=== PATIENT | female | born 1960 | race Caucasian/White ===

== ENCOUNTER 2018-05-31 14:07 | Emergency (ER) | payer OTHER, SELFPAY ==
[2018-05-31 14:14] VITALS: BP 125/91; PULSE 95; RESP 16; TEMP 37.5; O2SAT 96
--- NOTE | 2018-05-31 14:55 | DI.RAD_ITS ---
SYMPTOM/DIAGNOSIS: BLUNT TRAUMA RIGHT FOOT: 05/31 Three views were obtained. No fracture is seen.
--- NOTE | 2018-05-31 15:49 | DI.VRAD_ITS ---
EXAM: XR Right Foot Complete, 3 or more Views EXAM DATE/TIME: 05/31/2018 2:56 PM CLINICAL HISTORY: 58 years old, female; Injury or trauma; Injury history: Per PT: Dropped piece of plywood on foot, from about 3'; Initial encounter; Blunt trauma; Right; Patient HX: Blunt trauma to r foot, dropped plywood on foot TECHNIQUE: XR Right foot 3 or more views. COMPARISON: No relevant prior studies available. FINDINGS: Bones/joints: Normal. Soft tissues: Normal. IMPRESSION: No acute findings. Dictated and Authenticated by: Deangelo Carnes MD. Ordering:ASIA DINH MD
--- NOTE | 2018-05-31 16:11 | ED.GENADUL_ITS ---
Discharge Plan Disposition Patient Disposition: HOME Condition: Good Discharge Details Chief Complaint: Orthopedic Clinical Impression: Traumatic hematoma of right foot Primary Care Provider: Brigida Roque ED Provider: Darvin Johnson Home Meds and New Rx's Prescriptions: No Action hydrocortisone 30 GM cream with perineal applicator 30 gm RC PRN RF: 0 multivitamin 1 EACH capsule 1 ea PO PRN PRNRF: 0 Discharge Instructions Instructions: Foot Contusion (ED) Additional Instructions: Feel free to return the emergency department for any new or worsening symptoms otherwise follow-up with your primary care provider as needed for reassessment if not improving. Continue to use ice for 20 minutes at a time for the next 48 hours and take [id number] pain medication as needed for discomfort. You may use the hard sole shoe as needed for discomfort or walking as well. Referrals: Brigida Roque [Primary Care Provider] - (as needed for reassessment) Discharge Data Discharge Date/Time-TO BE ENTERED AT DEPARTURE: 05/31/18 16:24 Medical Decision Making Patient presenting to the emergency department for complaint of right foot pain after dropping a board on her foot. Patient does have ecchymosis swelling and tenderness to the dorsal aspect of her foot so radiological imaging was ordered. After review of radiological imaging and radiologist interpretation that shows no acute findings I feel the patient is able to be safely discharged. Patient was ordered a postop shoe for discomfort and encouraged to use ice and iguu-[id number] pain medication as needed. Patient to follow-up with primary care if not improving over the next couple weeks. After discussion of diagnosis and plan of care patient is no further needs, questions , or concerns and states clear understanding to return to the emergency department for any worsening symptoms. HPI General Mode of arrival: ambulatory . Date/Time Provider Initiated Documentation: 05/31/18 14:09 . Limitations to Documentation: no limitations . Information obtained by: patient . History of Present Illness described as moderate, with intensity rated at 6. Quality is described as aching, and is localized to the right and lower extremity. and it has been constant. No relieving factors improve symptom(s), No exacerbating factors reported . Patient did receive the following treatments prior to arrival, none Related Data Home Medications Medication Instructions Recorded Confirmed hydrocortisone 30 gm RC PRN script NS 08/13/17 05/31/18 multivitamin 1 ea PO PRN PRN NS 08/13/17 05/31/18 Allergies Allergy/AdvReac Type Severity Reaction Status Date / Time No Known Allergies Allergy Unverified 05/31/18 14:16 General Stated Complaint: Orthopedic LAINE: 4 Review of Systems Cardiovascular Denies syncope Musculoskeletal Reports as per HPI Neurologic Denies syncope and Denies sensory deficit PFSH Family History Mother OA (osteoarthritis) CVA (cerebral vascular accident) Father Diabetes CAD (coronary artery disease) Social History Smoking/Tobacco Use Status: Never Surgical History Colonoscopy - MAC (10/04/17) Exam Const General: not in acute distress and not diaphoretic Orientation: alert, awake and oriented x3 Resp Effort & Inspection: normal respiratory effort and able to speak in complete sentences Cardio Rate: regular rate Rhythm: regular rhythm Extrem Right lower extremity: lower leg Details: normal to inspection, ankle Details: normal to inspection and foot Details: normal capillary refill, tenderness Location: of the dorsal foot, toes with normal ROM, edema Location: of the dorsal foot and ecchymosis (dorsal foot); no puncture wound Course Vital Signs Temperature 37.5 C 05/31/18 14:14 Pulse 95 H 05/31/18 14:14 Respiratory Rate 16 05/31/18 14:14 Blood Pressure 125/91 H 05/31/18 14:14 Pulse Oximetry 96 05/31/18 14:14 Temperature 37.5 C 05/31/18 14:14 Temperature Source Temporal Artery Scan 05/31/18 14:14 Pulse 95 H 05/31/18 14:14 Respiratory Rate 16 05/31/18 14:14 Blood Pressure 125/91 H 05/31/18 14:14 Pulse Oximetry 96 05/31/18 14:14 Pain Level 2 05/31/18 14:14
[2018-05-31 16:24] VITALS: BP 125/91; PULSE 95; RESP 16; TEMP 37.5; O2SAT 96
== END 2018-05-31 16:24 | disposition home or self-care (01) ==
PROVIDERS: Emergency Provider Nurse Practitioner Family; PCP Family Medicine
DX: S90.31XA Contusion of right foot, initial encounter (principal); W20.8XXA Other cause of strike by thrown, projected or falling object, initial encounter
CPT/HCPCS: 29515; 99284; 73630; 99282

== ENCOUNTER 2021-12-11 18:27 | Outpatient (REF) | payer BC, SELFPAY ==
--- NOTE | 2021-12-11 16:40 | PAPFT_PTH ---
PATIENT: Lourdes Scherer LOC: NCN #:[id number] AGE/SX: 61/F ROOM: RE12/11/[address]: Brigida Roque : 1960 BED: DIS: 12/11/2021 SPEC #: [id number] RECD: 12/12/21 12:59 STATUS: JHONY REGera #: [id number] DAYO: 12/11/21 16:[address]: Brigida Roque DEPT: [facility] Cytology RECD BY: Any Valles Tissues: 1 - CX/ENDOCX FOR PAP SMEARS Procedures: PAP THIN PREP/UVM Screening HPV DNA PROBE Comments: [id number]
== END 2021-12-11 18:28 | disposition home or self-care (01) ==
LOC: NCHCN 18:27
PROVIDERS: PCP Family Medicine; Visit Provider Family Medicine
DX: Z12.4 Encounter for screening for malignant neoplasm of cervix (principal); Z11.51 Encounter for screening for human papillomavirus (HPV); Z00.00 Encounter for general adult medical examination without abnormal findings; Z01.419 Encounter for gynecological examination (general) (routine) without abnormal findings
CPT/HCPCS: 88142; 87624

== ENCOUNTER → 2022-01-31 03:25 | Outpatient (CLI) | payer BC, SELFPAY ==
--- NOTE | 2022-01-31 09:20 | DI.MAMMO_ITS ---
Exam(s) MAMMO SCREENING EXAM: MAMMO SCREENING CLINICAL HISTORY: SCREENING, Z12.31 TECHNIQUE: Mammograms were interpreted according to the usual protocol including computer analysis w [employer] CAD system, tomosynthesis and C-view imaging. COMPARISON: FINDINGS: The breasts are of moderate density with fairly symmetrical distribution of fibroglandular tissue. N o dominant mass or clumped microcalcification is identified in either breast. The current examinatio n is compared with previous examinations including July 2017 and there has been no gross interval change in appearance in comparison with the prior studies. IMPRESSION: No specific evidence of malignancy at this time. Routine screening examinations are suggested at yea rly intervals in this age group according to the ACS ACR guidelines. BI-RADS Category 1 - Negative Breast Density - Category B - Scattered areas of fibroglandular density
== END ==
PROVIDERS: PCP Family Medicine; Visit Provider Family Medicine
DX: Z12.31 Encounter for screening mammogram for malignant neoplasm of breast (principal)
CPT/HCPCS: 77063; 77067

== ENCOUNTER 2022-04-25 07:38 | Observation (INO) | payer BC, SELFPAY ==
[2022-04-25 07:45] VITALS: BP 143/79; PULSE 62; RESP 18; TEMP 36.7; O2SAT 100
--- NOTE | 2022-04-25 08:00 | DI.CT_ITS ---
Exam(s) CT RENAL COLIC WO EXAM: CT RENAL COLIC WO CLINICAL HISTORY: rt flank pain. TECHNIQUE: Imaging Protocol: Axial computed tomography images with coronal and sagittal reformatted images were created and reviewed CONTRAST MATERIAL: Intravenous: none Oral: None COMPARISON: CT RENAL COLIC WO CONTRAST from 03/06/2010 FINDINGS: VISUALIZED LUNG BASES: No nodules nor pleural effusions evident. ABDOMEN: There is no ascites. LIVER: There are no obvious focal hepatic lesions evident of this noninfused study. GALLBLADDER/BILIARY: Large intraluminal gallstones are again noted, these ranging up to 2 cm size. N o gallbladder wall edema nor pericholecystic fluid. CBD is not dilated. PANCREAS: No evidence of pancreatic mass nor dilatation of the pancreatic duct. SPLEEN: Spleen is not enlarged. No obvious intrasplenic lesions. ADRENALS: There are no significant adrenal masses. KIDNEYS:Left kidney is unremarkable. There is hydronephrosis and hydroureter on the right side. Cul prit calculus is in the lower right ureter a few cm above the ureterovesical junction. This calculus measures 6 x 3 millimeters. No other calculi seen in the ureter nor in the urinary bladder.. ABDOMINAL AORTA: Abdominal aorta is not enlarged. LYMPH NODES: There is no retroperitoneal nor paraaortic adenopathy. ABDOMINAL WALL: There is a fat only containing anterior abdominal wall midline umbilical hernia. GI: There is no evidence of bowel obstruction, free air, nor abscess. PELVIS: LYMPH NODES: There is no intrapelvic nor inguinal adenopathy. GI: Small appendicular lith noted in the appendix but no evidence of acute appendicitis at this time. No evidence of sigmoid diverticulitis. URINARY BLADDER: No calculi nor obvious masses evident REPRODUCTIVE: Uterus and adnexal regions appear age-appropriate. No free fluid OSSEOUS: No significant osseous lesions. Advanced disc space narrowing at L2-3 level. Moderate disc space narrowing L5-S1. IMPRESSION: 1. Main finding here is a 6 x 3 millimeter calculus in the lower right ureter above the ureterovesica l junction. This is causing unilateral right-sided hydronephrosis and hydroureter. Also perinephric streaking. The opposite-left kidney appears unremarkable. 2. Cholelithiasis again noted. There are 3 large calculi in the gallbladder lumen. No evidence of a cute cholecystitis. 3. Small appendicolith noted in the appendix but no evidence of acute appendicitis. Report called by myself to the ER provider. RADIATION DOSE DELIVERED: 836.55mGy.cm Total DLP DATA REPOSITORY: All CT scans at this facility are submitted to the National Radiology Data Registry (NRDR) Dose Index Registry (DIR) with the [employer] (ACR). RADIATION OPTIMIZATION: All CT scans at this facility use at least one of these dose optimization te chniques: automated exposure control; mA and/or kV adjustment per patient size (includes targeted exa ms where dose is matched to clinical indication); or iterative reconstruction.
--- NOTE | 2022-04-25 08:07 | W.ED.GENAD ---
Discharge Plan Disposition Patient Disposition: [facility] INPATIENT Condition: Stable Discharge Details Chief Complaint: FlankPain Clinical Impression: Right kidney stone Admit Date/Time: 04/25/22 11:52 Admit Provider: Annamaria Resendez Attending Provider: Annamaria Resendez Primary Care Provider: Brigida Roque ED Provider: Apollo Roberson Discharge Instructions Activity:: Activity as Tolerated Equipment/Supplies:: No Equipment Needed Diet:: As Tolerated Discharge Orders Discharge Orders: Discharge Order (Routine); Ordered 04/27/22 Ordered By: Luis Manuel Vargas Discharge Data Discharge Date/Time-TO BE ENTERED AT DEPARTURE: 04/25/22 12:39 Medical Decision Making 832??62-year-old female with history of kidney stones in the remote past, here with right flank pain. Concern for obstructed renal calculi versus less likely pyelonephritis. Patient does have associated nausea and vomiting and currently is experiencing severe pain. Urinalysis reviewed and patient has microscopic hematuria, consistent with renal stone. Zofran IV and IVF for nausea. Toradol IV and Dilaudid IV for analgesia. Plan to obtain CT of the abdomen pelvis to assess for acute surgical pathology including obstructing ureteral lithiasis. --CT was reviewed and interpreted by radiology:IMPRESSION: 1. Main finding here is a 6 x 3 millimeter calculus in the lower right ureter above the ureterovesical junction.? This is causing unilateral right-sided hydronephrosis and hydroureter.? Also perinephric streaking.? The opposite-left kidney appears unremarkable. 2. Cholelithiasis again noted.? There are 3 large calculi in the gallbladder lumen.? No evidence of acute cholecystitis. 3. Small appendicolith noted in the appendix but no evidence of acute appendicitis. 1030 --patient had some improvement in nausea and pain but then recurred. She was given additional Dilaudid IV and also Reglan IV. 1100 --patient was seen by urology, plan for stone extraction versus stent placement tomorrow. 1145 --patient reassessed and continues to have severe nausea. Plan to admit for IV fluid and continued analgesic and antiemetic treatment until procedure. Lab Data Lab results reviewed: Yes I reviewed the patient's lab results. Labs: Laboratory Tests Range/Units 04/25/22 04/25/22 04/25/22 07:48 07:58 08:06 WBC (4.4-10.8) 10^3/uL 7.16 RBC (3.93-5.22) 10^6/uL 4.13 Hgb (11.2-15.7) g/dL 12.8 Hct (36.0-46.0) % 38.7 MCV (80-95) fL 94 MCH (27.0-33.0) pg 31.0 MCHC (32.0-36.0) % 33.1 RDW (11.7-14.6) % 11.6 L Plt Count (130-400) 10^3/uL 384 MPV (8.0-11.0) fL 10.2 Immature Gran % 0.3 Neutrophils % 78.3 Lymphocytes % 13.5 Monocytes % 5.2 Eosinophils % 2.1 Basophils % 0.6 Nucleated RBC % (0.0-0.3) % 0.0 Absolute Neutrophils (1.2-6.7) 10^3/uL 5.61 Absolute Lymphocytes (1.2-3.4) 10^3/uL 0.97 L Absolute Monocytes (0.1-0.8) 10^3/uL 0.37 Absolute Eosinophils (0.0-0.7) 10^3/uL 0.15 Absolute Basophils (0.0-0.2) 10^3/uL 0.04 Sodium (136-145) mmol/L 142 Potassium (3.5-5.1) mmol/L 3.8 Chloride (98-107) mmol/L 105 Carbon Dioxide (21.0-32.0) mmol/L 30.2 Anion Gap (3-11) mmol/L 6.8 BUN (7-18) mg/dL 12 Creatinine (0.55-1.02) mg/dL 0.8 Estimated GFR/1.73 m2 (mL/min/1.73m2) >= 60.00 Glucose (74-106) mg/dL 126 H Calcium (8.5-10.1) mg/dL 8.7 Total Bilirubin (0.2-1.0) mg/dL 0.5 AST (15-37) U/L 23 ALT (14-59) U/L 46 Alkaline Phosphatase (46-116) U/L 87 Total Protein (6.4-8.2) g/dL 7.5 Albumin (3.4-5.0) g/dL 3.8 Lipase (73-393) U/L 128 Urine Color (Yellow) Yellow Urine Clarity (Clear) Sl Cloudy Urine pH (5-8) 7.0 Ur Specific [place] (1.005-1.025) 1.025 Urine Protein (Negative) mg/dL Trace H Urine Ketones (Negative) mg/dL Negative Urine Blood (Negative) Moderate H Urine Nitrite (Negative) Negative Urine Bilirubin (Negative) Negative Urine Urobilinogen (Up TO 0.2) EU/dL 0.2 Ur Leukocyte Esterase (Negative) Negative Urine RBC (0-2) HPF >50 H Urine WBC (0-5) HPF 0-2 Ur Epithelial Cells (Negative) HPF Few Urine Crystals (Negative) HPF Negative Urine Bacteria (Negative) HPF Few Urine Casts (Negative) LPF Negative Urine Mucus (Negative) Negative Urine Other (Negative) Negative Ur Culture Indicated? No Urine Glucose (Negative) mg/dL Negative COVID-19 Source Range/Units 04/25/22 10:55 WBC (4.4-10.8) 10^3/uL RBC (3.93-5.22) 10^6/uL Hgb (11.2-15.7) g/dL Hct (36.0-46.0) % MCV (80-95) fL MCH (27.0-33.0) pg MCHC (32.0-36.0) % RDW (11.7-14.6) % Plt Count (130-400) 10^3/uL MPV (8.0-11.0) fL Immature Gran % Neutrophils % Lymphocytes % Monocytes % Eosinophils % Basophils % Nucleated RBC % (0.0-0.3) % Absolute Neutrophils (1.2-6.7) 10^3/uL Absolute Lymphocytes (1.2-3.4) 10^3/uL Absolute Monocytes (0.1-0.8) 10^3/uL Absolute Eosinophils (0.0-0.7) 10^3/uL Absolute Basophils (0.0-0.2) 10^3/uL Sodium (136-145) mmol/L Potassium (3.5-5.1) mmol/L Chloride (98-107) mmol/L Carbon Dioxide (21.0-32.0) mmol/L Anion Gap (3-11) mmol/L BUN (7-18) mg/dL Creatinine (0.55-1.02) mg/dL Estimated GFR/1.73 m2 (mL/min/1.73m2) Glucose (74-106) mg/dL Calcium (8.5-10.1) mg/dL Total Bilirubin (0.2-1.0) mg/dL AST (15-37) U/L ALT (14-59) U/L Alkaline Phosphatase (46-116) U/L Total Protein (6.4-8.2) g/dL Albumin (3.4-5.0) g/dL Lipase (73-393) U/L Urine Color (Yellow) Urine Clarity (Clear) Urine pH (5-8) Ur Specific [place] (1.005-1.025) Urine Protein (Negative) mg/dL Urine Ketones (Negative) mg/dL Urine Blood (Negative) Urine Nitrite (Negative) Urine Bilirubin (Negative) Urine Urobilinogen (Up TO 0.2) EU/dL Ur Leukocyte Esterase (Negative) Urine RBC (0-2) HPF Urine WBC (0-5) HPF Ur Epithelial Cells (Negative) HPF Urine Crystals (Negative) HPF Urine Bacteria (Negative) HPF Urine Casts (Negative) LPF Urine Mucus (Negative) Urine Other (Negative) Ur Culture Indicated? Urine Glucose (Negative) mg/dL COVID-19 Source Nasal/Nares HPI General Mode of arrival: ambulatory. Date/Time Provider Initiated Documentation: 04/25/22 07:57. Limitations to Documentation: no limitations. Information obtained by: patient. HPI Narrative: 52-year-old female presents with chief complaint of flank pain. Patient notes right flank pain that started yesterday and has progressed. Pain is constant. Pain is currently severe rated 9/10. Pain localized to right flank and radiating into right mid abdomen. Pain feels similar to when she had kidney stones in the remote past. She has no associated hematuria or dysuria. She does have associated nausea and vomiting. Related Data Home Medications Medication Instructions Recorded Confirmed ibuprofen 400 mg tablet 400 mg PO Q6H 04/25/22 04/25/22 tramadol 50 mg tablet 50 mg PO Q6H PRN #10 tabs 04/27/22 Previous Rx's Medication Instructions Recorded tramadol 50 mg tablet 50 mg PO Q6H PRN #10 tabs 04/27/22 Allergies Allergy/AdvReac Type Severity Reaction Status Date / Time No Known Allergies Allergy Unverified 04/25/22 07:50 General Stated Complaint: FlankPain LAINE: 3 Review of Systems All systems reviewed & are unremarkable except as noted in HPI and below Constitutional Constitutional: Denies fever(s) Gastrointestinal Gastrointestinal: Reports as per HPI [facility] Medical History (Updated 04/28/22 @ 00:01 by LEYLA TO) COVID-19 Impacted cerumen (08/10/13) Right distal ureteral calculus Right kidney stone Sensorineural hearing loss, unilateral (08/10/13) Surgical History Colonoscopy - MAC (10/04/17) Family History Mother OA (osteoarthritis) Stroke Father Diabetes CAD (coronary artery disease) Social History Smoking/Tobacco Use Status: Never Smoking risk assessment performed?: Yes Alcohol Intake: current Alcohol Intake frequency: holidays/special occasions only Drug use: Never Substance use type: does not use Do you feel safe at home: Yes Do you feel safe in your relationship?: Yes Exam Const General: cooperative and no acute distress HENMT Mouth: moist mucous membranes Resp Auscultation: clear to auscultation bilaterally, no rales, no rhonchi and no wheezes Cardio Rate: regular rate and not tachycardic Rhythm: regular rhythm GI Palpation: soft, not firm, no guarding, no masses, not rigid and nontender General: CVA tenderness on the right Skin General skin exam: no rashes or lesions noted Neuro General: patient alert, patient awake and tone normal Course Vital Signs Vital signs: Vital Signs Temperature 36.7 C 04/25/22 07:45 Pulse 62 04/25/22 07:45 Respiratory Rate 18 04/25/22 07:45 Blood Pressure 143/79 H 04/25/22 07:45 Pulse Oximetry 100 04/25/22 07:45 Temperature 36.7 C 04/25/22 07:45 Temperature Source Temporal Artery Scan 04/25/22 07:45 Pulse 62 04/25/22 07:45 Respiratory Rate 18 04/25/22 07:45 Respiratory Effort Non-Labored 04/25/22 08:05 Blood Pressure 143/79 H 04/25/22 07:45 Blood Pressure Position Sitting 04/25/22 07:45 Pulse Oximetry 100 04/25/22 07:45 Oxygen Delivery Method Room Air 04/25/22 07:45 Oxygen Flow Rate 0 04/25/22 07:45 Pain Level 8 04/25/22 08:04
[2022-04-25 08:10] LABS: Bilirubin Negative (Negative); Blood Moderate (Negative); Clarity Sl Cloudy (Clear); Glucose Negative (Negative); Ketones Negative (Negative); Leukocyte Esterase Negative (Negative); Nitrite Negative (Negative); Specific Gravity 1.025 (1.005-1.025); Urobilinogen 0.2 EU/dL (Up TO 0.2)
[2022-04-25 08:16] LABS: Bacteria Few HPF (Negative); C & S Indicated? No; Casts Negative LPF (Negative); Crystals Negative HPF (Negative); Epithelial Cells Few HPF (Negative); Mucus Negative (Negative); Other Cells Negative (Negative); RBC >50 HPF (0-2); WBC 0-2 HPF (0-5)
[2022-04-25] MEDS: Ketorolac 15 MG/ML VIAL IVP ×2 (08:22→23:00)
[2022-04-25] MEDS: Ondansetron 4 MG/2 ML VIAL IVP (08:22)
[2022-04-25] MEDS: Normal Saline Flush 10 ML SYR IVP ×2 (08:22→13:21)
[2022-04-25] MEDS: Lactated Ringers 500 ML IV (08:23)
[2022-04-25] MEDS: HYDROmorphone 2 MG/ML SYR 0.5 MG IVP (08:23)
[2022-04-25 08:32] LABS: Abs Immature Grans 0.02 10^3/uL (0.0-0.06); Absolute Basophil Count 0.04 10^3/uL (0.0-0.2); Absolute Eosinophil Count 0.15 10^3/uL (0.0-0.7); Absolute Lymphocyte Count 0.97 10^3/uL (1.2-3.4); Absolute Monocyte Count 0.37 10^3/uL (0.1-0.8); Absolute Neutrophil Count 5.61 10^3/uL (1.2-6.7); Basophils % 0.6; Eosinophils % 2.1; HCT 38.7 % (36.0-46.0); HGB 12.8 g/dL (11.2-15.7); Immature Grans % 0.3; Lymphocytes % 13.5; MCHC 33.1 % (32.0-36.0); MCV 94 fL (80-95); MPV 10.2 fL (8.0-11.0); Monocytes % 5.2; Neutrophils % 78.3; Platelet Count 384 10^3/uL (130-400); RBC 4.13 10^6/uL (3.93-5.22); RDW 11.6 % (11.7-14.6); RDW-SD 39.5 fL; WBC 7.16 10^3/uL (4.4-10.8)
[2022-04-25 08:47] LABS: ALT 46 U/L (14-59); AST 23 U/L (15-37); Albumin 3.8 g/dL (3.4-5.0); Alkaline Phosphatase 87 U/L (46-116); Anion Gap 6.8 mmol/L (3-11); BUN 12 mg/dL (7-18); Bilirubin, Total 0.5 mg/dL (0.2-1.0); CO2 30.2 mmol/L (21.0-32.0); CREATININE 0.8 mg/dL (0.55-1.02); Calcium 8.7 mg/dL (8.5-10.1); Chloride 105 mmol/L (98-107); Glucose 126 mg/dL (74-106); Lipase 128 U/L (73-393); Potassium 3.8 mmol/L (3.5-5.1); Sodium 142 mmol/L (136-145); Total Protein 7.5 g/dL (6.4-8.2)
[2022-04-25] MEDS: HYDROmorphone 2 MG/ML SYR (09:26)
[2022-04-25] MEDS: Tamsulosin 0.4 MG CAPCR PO (09:50)
[2022-04-25 09:56] VITALS: BP 126/74; PULSE 62; TEMP 36.2; O2SAT 95
[2022-04-25] MEDS: Metoclopramide 10 MG/2 ML VIAL IVP (10:51)
[2022-04-25 10:58] LABS: Source Nasal/Nares
--- NOTE | 2022-04-25 12:01 | PDOC.ANES ---
Date of service: 04/25/22 Time of Service: 11:25 Anesthesia Note Report Anesthesia Note: Spoke with patient at length about previous associated complication with anesthesia dating back to the 1960s. Patient was previously a patient of mine in 2018 for a colonoscopy and proceeded without incident. In 2018, extensive chart review was completed and it was noted that patient had received GETA without paralytic, easy intubation, and had no documented note of masseter spasm. Of note, patient was COVID positive in early April and reports she was symptomatic with a fever for 12 days and still feels run down and fatigued. If surgery is indicated, discussed possibility of SAB vs GETA vs MAC. Will discuss case furthery with Urology and formulate a plan.
[2022-04-25 12:12] VITALS: BP 129/72; PULSE 70; RESP 18; TEMP 36.5; O2SAT 97
--- NOTE | 2022-04-25 12:51 | W.PM.HP.N ---
Date of service: 04/25/22 Time of Service: 12:52 Assessment and Plan Assessment and plan (1) Right kidney stone: Status: Acute Assessment and plan: referred to observation for intractable nausea/vomiting and pain received flomax in ED continue pain management and antiemetics urology consulted and planned OR procedure tomorrow. NPO after midnight strain urine, continue flomax (2) COVID-19: Status: Acute Assessment and plan: Had symptomatic covid in early April and now with no respiratory symptoms, likely residual positive PCR. She remains fatigued since. No covid treatment recommended at this time. high cycling time (> 34), no covid precaution, standard precautions only. (3) Discharge planning issues: Status: Acute Assessment and plan: anticipate discharge to home with no services after procedure tomorrow if stable discussed with DR Resendez History of Present Illness History of Present Illness Chief Complaint: right flank pain Narrative: 62 year old female with history of kidney stone who presents with similar pain. work up in the ED shows a right urethral stone with hydro, no kidney injury. she received IV pain medication and antiemetics with ongoing symptoms that are not managed. Her case was discussed with urology who will take her to the OR tomorrow for surgical procedure. she is unable to be discharged to home d/t unable to take PO and will stay here under observation until her procedure under hospitalist services. Review of Systems All systems reviewed & are unremarkable except as noted in HPI and below Constitutional Constitutional: Denies fever(s) ENT Ears, Nose, Mouth, and Throat: Denies dizziness Cardiovascular Cardiovascular: Denies chest pain and Denies dyspnea Respiratory Respiratory: Denies dyspnea Gastrointestinal Gastrointestinal: Denies abdominal pain, Denies constipation, Denies diarrhea, Reports nausea and Reports vomiting Genitourinary Genitourinary: Denies hematuria and Denies difficulty voiding Musculoskeletal Musculoskeletal: Reports back pain (right flank) Integumentary/Breasts Skin/Breast: Denies new lesions and Denies rash Neurologic Neurologic: Denies dizziness PFSH All Active Problems (Updated 04/25/22 @ 18:23 by Winsome Villar NP) Discharge planning issues (Acute) COVID-19 (Acute) Right kidney stone (Acute) Surgical History Colonoscopy - MAC (10/04/17) Family History Mother OA (osteoarthritis) Stroke Father Diabetes CAD (coronary artery disease) Social History Smoking/Tobacco Use Status: Never Smoking risk assessment performed?: Yes Alcohol Intake: current Alcohol Intake frequency: holidays/special occasions only Drug use: Never Substance use type: does not use Do you feel safe at home: Yes Do you feel safe in your relationship?: Yes Meds Allergies and Home Medications Allergies Allergy/AdvReac Type Severity Reaction Status Date / Time No Known Allergies Allergy Unverified 04/25/22 07:50 Home Medications Medication Instructions Recorded Confirmed Type ibuprofen 400 mg tablet 400 mg PO Q6H 04/25/22 04/25/22 History Exam Const General: cooperative and no acute distress Nutritional Appearance: average body habitus Orientation: alert, awake and oriented x3 HENMT Head: normal to inspection, normocephalic and atraumatic Mouth: oral mucosae normal Cardio Rate: regular rate Rhythm: regular rhythm GI Inspection: normal to inspection Palpation: soft and nontender Back/Spine/Pelvis Back: CVA tenderness (right) Skin General skin exam: no rashes or lesions noted Neuro General: patient alert, patient awake, patient oriented x3 and no focal motor deficits Extrem General: normal to inspection and no pedal edema Psych Appearance: grossly normal Mental Status: mental status grossly normal Speech and Movement: speech and movement normal Mood: congruent mood Results Labs Result diagrams: 04/25/22 08:06 04/25/22 07:58 Labs: Laboratory Results - last 24 hr 04/25/22 04/25/22 04/25/22 07:48 07:58 08:06 WBC 7.16 RBC 4.13 Hgb 12.8 Hct 38.7 MCV 94 MCH 31.0 MCHC 33.1 RDW 11.6 L Plt Count 384 MPV 10.2 Immature Gran % 0.3 Neutrophils % 78.3 Lymphocytes % 13.5 Monocytes % 5.2 Eosinophils % 2.1 Basophils % 0.6 Nucleated RBC % 0.0 Absolute Neutrophils 5.61 Absolute Lymphocytes 0.97 L Absolute Monocytes 0.37 Absolute Eosinophils 0.15 Absolute Basophils 0.04 Sodium 142 Potassium 3.8 Chloride 105 Carbon Dioxide 30.2 Anion Gap 6.8 BUN 12 Creatinine 0.8 Estimated GFR/1.73 m2 >= 60.00 Glucose 126 H Calcium 8.7 Total Bilirubin 0.5 AST 23 ALT 46 Alkaline Phosphatase 87 Total Protein 7.5 Albumin 3.8 Lipase 128 Urine Color Yellow Urine Clarity Sl Cloudy Urine pH 7.0 Ur Specific [place] 1.025 Urine Protein Trace H Urine Ketones Negative Urine Blood Moderate H Urine Nitrite Negative Urine Bilirubin Negative Urine Urobilinogen 0.2 Ur Leukocyte Esterase Negative Urine RBC >50 H Urine WBC 0-2 Ur Epithelial Cells Few Urine Crystals Negative Urine Bacteria Few Urine Casts Negative Urine Mucus Negative Urine Other Negative Ur Culture Indicated? No Urine Glucose Negative COVID-19 Source 04/25/22 10:55 WBC RBC Hgb Hct MCV MCH MCHC RDW Plt Count MPV Immature Gran % Neutrophils % Lymphocytes % Monocytes % Eosinophils % Basophils % Nucleated RBC % Absolute Neutrophils Absolute Lymphocytes Absolute Monocytes Absolute Eosinophils Absolute Basophils Sodium Potassium Chloride Carbon Dioxide Anion Gap BUN Creatinine Estimated GFR/1.73 m2 Glucose Calcium Total Bilirubin AST ALT Alkaline Phosphatase Total Protein Albumin Lipase Urine Color Urine Clarity Urine pH Ur Specific [place] Urine Protein Urine Ketones Urine Blood Urine Nitrite Urine Bilirubin Urine Urobilinogen Ur Leukocyte Esterase Urine RBC Urine WBC Ur Epithelial Cells Urine Crystals Urine Bacteria Urine Casts Urine Mucus Urine Other Ur Culture Indicated? Urine Glucose COVID-19 Source Nasal/Nares Last Vital Signs Temp 36.5 C 04/25/22 12:12 Pulse 70 04/25/22 12:12 Resp 18 04/25/22 12:12 BP 129/72 04/25/22 12:12 Pulse Ox 97 04/25/22 12:12
[2022-04-25] MEDS: Normal Saline 500 ML 25 ML IV (13:21)
[2022-04-25 14:00] VITALS: BP 145/77; PULSE 79; RESP 18; TEMP 35.9; O2SAT 98
[2022-04-25 14:14] LABS: COVID-19 PCR Positive (Negative)
--- NOTE | 2022-04-25 16:13 | UCONE_ITS ---
Date of service: 04/25/22 Time of Service: 11:00 Assessment and Plan Assessment and plan (1) Right kidney stone: Status: Acute Assessment and plan: Ms. Scherer is a 62-year-old female with history of renal calculi. We reviewed her current CT that notes a 6 x 3 mm stone in the lower right ureter above the UVJ causing right-sided hydronephrosis and hydroureter. It appears that patient had a similar size and position stone back in 2009. There was no surgical intervention found or noted at that time. Also patient did not feel as if she passed the stone at that time approximately 12 years ago. Question if this is the same stone. In discussion with the patient she feels that her pain and nausea are not necessarily controlled at this time. We will have the emergency room provider work on these matters. If she is able to have her pain and nausea controlled for discharge, we will arrange for her to have surgical intervention tomorrow with ureteroscopy and stone manipulation with possible stenting. We also discussed the possibility of placing a stent only tomorrow. Each of these optio ns and procedures were discussed with her. We noted with patient that if her pain and nausea are not controlled she may need to be admitted here at the facility still with the plan of having surgical intervention as mentioned above. I have asked that the ER provider place a COVID test for this individual so we can move forward with intervention tomorrow. Preop orders were completed and given to nursing for appropriate scheduling with day surgery. Recommend that anesthesia meet with this individual to discuss concerns of patient with prior ill anesthesia experiences. Anesthesia did meet with patient and came to clinic to discuss that patient recently also had COVID. At minimum at this point patient will need stent placement tomorrow and unless stone were to pass overnight. Dr. Vargas was made aware of this matter. Further decision and evaluation pending patient's status. Dictation was done by [employer] voice recognition. Errors may be present within the note. A total of 35 minutes was spent reviewing this patient's EMR, [id number] time, and documenting. History of Present Illness Narrative: Ms. Scherer is a 62-year-old female with right flank pain that started earlier this morning. She notes that she is having nausea with vomiting. She denies dysuria, gross hematuria or change in frequency or urgency. She reports having a history of kidney stones approximately 12 years ago. She notes that she saw urology at that time but no surgical intervention was done. She thinks that her stones at that time was also on her right side. She is unsure if she passed it at that time. She reports no history of gout or parathyroid disease. She does report that in the past she has had trouble with anesthesia related to nonurologic surgeries. Her current medical history is unremarkable. She reports no family history of urologic cancers or concerns. Consults Consult date: 04/25/22 Requesting physician: Apollo Roberson Review of Systems Narrative: See HPI PFSH All Active Problems (Updated 04/25/22 @ 08:34 by Apollo Roberson MD) Right kidney stone (Acute) Surgical History Colonoscopy - MAC (10/04/17) Family History Mother OA (osteoarthritis) Stroke Father Diabetes CAD (coronary artery disease) Social History Smoking/Tobacco Use Status: Never Smoking risk assessment performed?: Yes Alcohol Intake: current Alcohol Intake frequency: holidays/special occasions only Drug use: Never Substance use type: does not use Do you feel safe at home: Yes Do you feel safe in your relationship?: Yes Exam Const General: cooperative Orientation: alert, awake and oriented x3 Resp Effort & Inspection: normal respiratory effort and able to speak in complete sentences GI Inspection: normal to inspection Palpation: soft and tender in the RLQ General: CVA tenderness on the right; not on the left Results Last Vital Signs Temp 96.6 F L 04/25/22 14:00 Pulse 79 04/25/22 14:00 Resp 18 04/25/22 14:00 BP 145/77 H 04/25/22 14:00 Pulse Ox 98 04/25/22 14:00 Labs Result diagrams: 04/25/22 08:06 04/25/22 07:58 Labs: Laboratory Results - last 24 hr 04/25/22 04/25/22 04/25/22 07:48 07:58 08:06 WBC 7.16 RBC 4.13 Hgb 12.8 Hct 38.7 MCV 94 MCH 31.0 MCHC 33.1 RDW 11.6 L Plt Count 384 MPV 10.2 Immature Gran % 0.3 Neutrophils % 78.3 Lymphocytes % 13.5 Monocytes % 5.2 Eosinophils % 2.1 Basophils % 0.6 Nucleated RBC % 0.0 Absolute Neutrophils 5.61 Absolute Lymphocytes 0.97 L Absolute Monocytes 0.37 Absolute Eosinophils 0.15 Absolute Basophils 0.04 Sodium 142 Potassium 3.8 Chloride 105 Carbon Dioxide 30.2 Anion Gap 6.8 BUN 12 Creatinine 0.8 Estimated GFR/1.73 m2 >= 60.00 Glucose 126 H Calcium 8.7 Total Bilirubin 0.5 AST 23 ALT 46 Alkaline Phosphatase 87 Total Protein 7.5 Albumin 3.8 Lipase 128 Urine Color Yellow Urine Clarity Sl Cloudy Urine pH 7.0 Ur Specific [place] 1.025 Urine Protein Trace H Urine Ketones Negative Urine Blood Moderate H Urine Nitrite Negative Urine Bilirubin Negative Urine Urobilinogen 0.2 Ur Leukocyte Esterase Negative Urine RBC >50 H Urine WBC 0-2 Ur Epithelial Cells Few Urine Crystals Negative Urine Bacteria Few Urine Casts Negative Urine Mucus Negative Urine Other Negative Ur Culture Indicated? No Urine Glucose Negative COVID-19 Source SARS-CoV-2 (PCR) 04/25/22 10:55 WBC RBC Hgb Hct MCV MCH MCHC RDW Plt Count MPV Immature Gran % Neutrophils % Lymphocytes % Monocytes % Eosinophils % Basophils % Nucleated RBC % Absolute Neutrophils Absolute Lymphocytes Absolute Monocytes Absolute Eosinophils Absolute Basophils Sodium Potassium Chloride Carbon Dioxide Anion Gap BUN Creatinine Estimated GFR/1.73 m2 Glucose Calcium Total Bilirubin AST ALT Alkaline Phosphatase Total Protein Albumin Lipase Urine Color Urine Clarity Urine pH Ur Specific [place] Urine Protein Urine Ketones Urine Blood Urine Nitrite Urine Bilirubin Urine Urobilinogen Ur Leukocyte Esterase Urine RBC Urine WBC Ur Epithelial Cells Urine Crystals Urine Bacteria Urine Casts Urine Mucus Urine Other Ur Culture Indicated? Urine Glucose COVID-19 Source Nasal/Nares SARS-CoV-2 (PCR) Positive A*
[2022-04-25 16:46] VITALS: BP 115/71; PULSE 68; RESP 17; TEMP 36.3; O2SAT 98
[2022-04-25] MEDS: Normal Saline 1,000 ML 75 ML IV (18:29)
[2022-04-26] VITALS (8 sets, daily range): BP systolic 102–148; BP diastolic 65–87; PULSE 64–93; RESP 12–18; TEMP 36.1–37.4; TEMPC 36.3; O2SAT 94–98; BMI 27.3
[2022-04-26 06:51] LABS: Abs Immature Grans 0.02 10^3/uL (0.0-0.06); Absolute Basophil Count 0.05 10^3/uL (0.0-0.2); Absolute Eosinophil Count 0.14 10^3/uL (0.0-0.7); Absolute Monocyte Count 0.63 10^3/uL (0.1-0.8); Absolute Neutrophil Count 4.72 10^3/uL (1.2-6.7); Basophils % 0.7; Eosinophils % 1.9; HCT 33.3 % (36.0-46.0); Immature Grans % 0.3; Lymphocytes % 25.5; MCV 94 fL (80-95); MPV 9.9 fL (8.0-11.0); Monocytes % 8.4; Neutrophils % 63.2; Platelet Count 294 10^3/uL (130-400); RBC 3.55 10^6/uL (3.93-5.22); RDW 11.8 % (11.7-14.6); RDW-SD 40.3 fL; WBC 7.46 10^3/uL (4.4-10.8)
[2022-04-26 07:00] LABS: Anion Gap 5.6 mmol/L (3-11); BUN 10 mg/dL (7-18); CO2 28.4 mmol/L (21.0-32.0); CREATININE 0.8 mg/dL (0.55-1.02); Calcium 8.2 mg/dL (8.5-10.1); Chloride 110 mmol/L (98-107); Glucose 103 mg/dL (74-106); Potassium 3.7 mmol/L (3.5-5.1); Sodium 144 mmol/L (136-145)
[2022-04-26] MEDS: Tamsulosin 0.4 MG CAPCR PO (09:24)
--- NOTE | 2022-04-26 09:37 | INITIAL_ITS ---
- If Service Date Differs Date of service: 04/26/22 Time of Service: 09:37 Care Management Initial Assess REASON FOR HOSPITALIZATION:: right kidney stone PAST MEDICAL HISTORY/PAST SURGICAL HISTORY:: All Active Problems (Updated 04/25/22 @ 18:23 by Winsome Villar NP). Discharge planning issues (Acute). COVID-19 (Acute). Right kidney stone (Acute). Surgical History . Colonoscopy - MAC (10/04/17). Family History . Mother. OA (osteoarthritis). Stroke. Father. Diabetes. CAD (coronary artery disease) PREVIOUS FUNCTIONAL STATUS/SOCIAL/FAMILY SUPPORTS:: Lourdes lives in [place] with her Lee. They have 6 children who are all grown and living on their own. They also have 13 grandchildren. 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 She is independent at baseline. CURRENT FUNCTIONAL STATUS:: follow up with PCP and plan of care ADVANCE DIRECTIVES:: none on file Has patient been provided with info about the portal/API?: Yes Did the patient sign up for the portal?: No CODE STATUS:: Full Code INSURANCE COVERAGE / FINANCIAL ISSUES:: ANNA CURRENT HOME/COMMUNITY SERVICES/EQUIPMENT:: none PRIMARY CARE PHYSICIAN:: Brigida Roque POTENTIAL DISCHARGE NEEDS:: follow up with PCP and plan of care PATIENT/FAMILY EDUCATION NEEDS:: Review of discharge instructions, limitations, activity, follow up plan, discuss [employer] Me [employer] TRANSPORTATION:: via private vehicle with family PLAN:: Lourdes will likley return home with no new services. She will folow up with Urology and her PCP and transport with family.CM will continue to support Lourdes and assess for discharge needs.
[2022-04-26] MEDS: Normal Saline Flush 10 ML SYR IVP ×3 (09:57→23:32)
--- NOTE | 2022-04-26 10:30 | DI.RAD_ITS ---
Exam(s) XR RETROGRADE IN OR EXAM: XR RETROGRADE IN OR CLINICAL HISTORY: Right kidney stone TECHNIQUE: 2D and realtime digital imaging was performed. COMPARISON: No exams were available for comparison FINDINGS: C-arm fluoroscopy was utilized by Dr. Vargas during reported retrograde ureterography, please see the procedure note. IMPRESSION: RADIATION DOSE DELIVERED: bryce Alvarado= 4.96 mGy
[2022-04-26] MEDS: Lactated Ringers 1,000 ML 150 ML IV ×2 (11:30→17:22)
[2022-04-26] MEDS: Lactated Ringers 250 ML IV (11:30)
--- NOTE | 2022-04-26 12:53 | ANES.PREOP_ITS ---
General Info Date of Service Date Performed: 04/26/22 Height: 5 ft 7 in Weight: 79.379 kg Body Mass Index (BMI): 27.3 Surgical Procedure: Operation Date: 04/26/22 11:55 Proposed Procedure Side Surgeon p Cystoscopy/Laser/Retrograde/Ureteroscopy/Stone Manipulation/? Stent Right Luis Manuel Vargas MD Meds Allergies and Home Medications Allergies Allergy/AdvReac Type Severity Reaction Status Date / Time No Known Allergies Allergy Unverified 04/25/22 07:50 Home Medication Medication Instructions Recorded ibuprofen 400 mg tablet 400 mg PO Q6H 04/25/22 Current Visit Medications: Current Medications Generic Name Dose Route Start Last Admin Trade Name Freq PRN Reason Stop Dose Admin Dimethicone/Zinc Oxide 0 gm 04/25/22 11:52 Rashida Protect Cream 142 Gm Tube TP PRN PRN Hydromorphone HCl 0.5 mg 04/25/22 18:26 Hydromorphone 2 Mg/Ml Syr IVP Q6H PRN PRN Sodium Chloride 500 mls @ 0 mls/hr 04/25/22 08:06 04/25/22 13:35 Saline 500ml Bag IV 0 mls/hr PRN PRN Infusion As Directed Acetaminophen 1,000 mg in 100 mls @ 400 mls/hr 04/25/22 11:54 Ofirmev IVPB Q8H PRN PRN Promethazine HCl 25 mg/ Sodium 51 mls @ 200 mls/hr 04/25/22 11:55 04/25/22 23:20 Chloride IVPB Infused Q6H PRN PRN Infusion Ringer's Solution 1,000 mls @ 150 mls/hr 04/26/22 12:30 04/26/22 11:31 IV 0 mls/hr INFUSION TREE Infusion IV Miscellaneous Supplies 1 each 04/25/22 08:15 Iv Access IV DIRECTED TREE Iohexol 100 ml 04/26/22 12:30 Omnipaque 350 Mg/Ml 100 Ml Btl IJ 04/26/22 18:00 DIRECTED TREE Ketorolac Tromethamine 15 mg 04/25/22 11:54 04/25/22 23:00 Ketorolac 15 Mg/Ml Vial IVP 04/30/22 11:53 15 mg Q6H PRN PRN Administration Sodium Chloride 0 ml 04/25/22 08:06 04/26/22 11:28 Normal Saline Flush 10 Ml Syr IVP 10 ml PRN PRN Administration Tamsulosin HCl 0.4 mg 04/26/22 08:30 04/26/22 09:24 Tamsulosin 0.4 Mg Capcr PO 0.4 mg DAILY TREE Administration PFSH Active Problems Active Problems: Problem Status Onset Code Discharge planning issues Z02.9 COVID-19 U07.1 Right kidney stone N20.0 Surgical History Surgical History Colonoscopy - MAC (10/04/17) Tobacco Smoking/Tobacco Use Status: Never Alcohol Alcohol Intake: current Alcohol intake frequency: holidays/special occasions only Substance Use Substance use: Never Substance use type: does not use Vital Signs and Lab Results Vital Signs Most Recent Vital Signs in EMR: Most Recent Vital Signs Temp Pulse Resp BP Pulse Ox 36.1 C L 93 H 17 102/65 98 04/26/22 03:28 04/26/22 03:28 04/26/22 03:28 04/26/22 03:28 04/26/22 09:00 Lab Results Result Diagrams: 04/26/22 06:15 04/26/22 06:15 Blood Type / Crossmatch: No Data to Display Complete Blood Count: White Blood Count 7.46 10^3/uL (4.4-10.8) 04/26/22 06:15 Red Blood Count 3.55 10^6/uL (3.93-5.22) L 04/26/22 06:15 Hemoglobin 11.0 g/dL (11.2-15.7) L 04/26/22 06:15 Hematocrit 33.3 % (36.0-46.0) L 04/26/22 06:15 Platelet Count 294 10^3/uL (130-400) 04/26/22 06:15 Complete Metabolic Panel: Sodium Level 144 mmol/L (136-145) 04/26/22 06:15 Potassium Level 3.7 mmol/L (3.5-5.1) 04/26/22 06:15 Chloride Level 110 mmol/L (98-107) H 04/26/22 06:15 Carbon Dioxide Level 28.4 mmol/L (21.0-32.0) 04/26/22 06:15 Blood Urea Nitrogen 10 mg/dL (7-18) 04/26/22 06:15 Creatinine 0.8 mg/dL (0.55-1.02) 04/26/22 06:15 Estimated GFR/1.73 m2 >= 60.00 (mL/min/1.73m2) 04/26/22 06:15 Calcium Level 8.2 mg/dL (8.5-10.1) L 04/26/22 06:15 Albumin 3.8 g/dL (3.4-5.0) 04/25/22 07:58 Glucose Level 103 mg/dL (74-106) 04/26/22 06:15 Liver Function Panel: Alanine Aminotransferase (ALT/SGPT) 46 U/L (14-59) 04/25/22 07: 58 Aspartate Amino Transf (AST/SGOT) 23 U/L (15-37) 04/25/22 07:58 Coagulation Panel: No Data to Display Cardiac Panel: No Data to Display Arterial Blood Gas: No Data to Display Venous Blood Gas: No Data to Display Pancreas Panel: Lipase 128 U/L (73-393) 04/25/22 07:58 Thyroid Panel: No Data to Display Infectious Disease: Coronavirus (COVID-19)(PCR) Positive (Negative) A* 04/25/22 10 :55 Coronavirus 2019 Source Nasal/Nares 04/25/22 10:55 Blood Cultures: No Data to Display Toxicology Panel: No Data to Display Anesthesia Assessment and Plan Anesthesia History Personal History: Other (Refused or unable to open mouth under anesthesia ) Family History: No Family History of Anesthesia Complications Exercise Tolerance Exercise Tolerance: Metabolic Equivalents>4 Pertinent Negatives Pertinent Negatives: No Symptoms of GERD, No Major Cardiovascular Symptoms or Complaints, No Major Pulmonary Symptoms or Complaints and No History of CVA/TIA Cardiac & Pulmonary Exam Cardiac Exam: Normal S1/S2 Heart Sounds Pulmonary Exam: Clear Bilateral Breath Sounds Implantable Cardiac Device Does patient have a Pacemaker or an ICD?: No Airway Exam Known Difficult Airway: No Mallampati Class: 1 Mouth Opening: Normal (> 3cm) Thyromental Distance: Greater than 3 cm Neck Range of Motion: Full ROM Neck Circumference: Normal Teeth Condition: Normal Dentition ASA Classification ASA Score: ASA 2 Emergency Case?: No NPO Status NPO Status: NPO Clears >2 hours, Solids >8 hours Anesthesia Plan Resuscitation Status: Full Code Anesthesia Technique: General Anesthesia Airway Planned: Natural Airway Monitors Used: Standard Monitors
[2022-04-26] MEDS: Omnipaque 350 MG/ML 100 ML BTL IJ (13:20)
[2022-04-26] MEDS: Lidocaine 2% Jelly 6 ML SYR (13:20)
--- NOTE | 2022-04-26 13:38 | W.PM.OP ---
Date of service: 04/26/22 Time of Service: 13:39 Operative Note Operative Note DATE OF PROCEDURE: 04/26/22 PRE-OP DIAGNOSIS: Right ureteral stone PROCEDURE: Cystoscopy, right retrograde pyelogram, right ureteroscopy, right ureteral stone extraction, insert right ureteral stent SURGEON: Luis Manuel Vargas ANESTHESIA TYPE: General:No Airway Refer to Anesthesia Record ESTIMATED BLOOD LOSS: 5 PATHOLOGY: other (ureteral stone for chemical analysis) COMPLICATIONS: None Patient was transported to: PACU Patient's condition: stable Implants: 6 [place] by 22 to 30 cm right ureteral stent Indications: This is a 62-year-old woman who presented to the emergency department yesterday with severe right flank pain. She was found to have an obstructing right distal ureteral stone. Her pain, nausea and vomiting could not be managed as an outpatient, so she was admitted to the hospital for hydration and analgesia and antiemetics. When her symptoms persisted after 24 hours, she is brought to the operating room for possible right ureteral stent and possible stone manipulation Findings: Right distal ureteral stone Procedure Description: She is brought to the operating room on 04/26/2022. She was given preoperative IV antibiotics. After successful induction of general anesthesia, she was placed in the dorsal lithotomy position. Her genitalia was prepped and draped. 2% Xylocaine jelly was instilled into the urethra to act as a local anesthetic. A 22 [place] rigid cystoscope was passed through the urethra into the bladder. The bladder was inspected with a 30 degree lens. The base of the bladder had distended slightly consistent with a cystocele. Both ureteral orifice ease were then visualized. The left orifice appeared normal. The right orifice was a bit more erythematous and edematous compared to the left. The right orifice was cannulated with a 5 [place] access catheter. Retrograde pyelogram was obtained by injecting Omnipaque through the access catheter under fluoroscopic guidance. The filling defect was outlined in the right distal ureter. I then passed a Glidewire through the lumen of the ureteral access catheter and the catheter was removed. I passed the semirigid ureteroscope through the urethra into the bladder. The scope was maneuvered into the right distal ureter and advanced up to the level of the stone. Once the stone was visualized, I was able to grasp it in a [place] stone basket and remove it in its entirety. The stone was sent to pathology for chemical analysis. We elected to place a ureteral stent following this procedure. I chose a 6 [place] variable length stent and advanced it over the indwelling wire. The proximal end of the stent was curled in the upper pole calyx and the distal end was curled within the bladder. We left the safety string in place and brought the strings through the urethra. We tucked the end of the string into the patient's vaginal cavity. Repeat cystoscopy confirmed the positioning of the stent. She tolerated the procedure with no complications.
--- NOTE | 2022-04-26 14:01 | W.ANESPOSTOP ---
Postoperative Evaluation Date, Time and Location Date Performed: 04/26/22 Time Performed: 14:01 Patient Location: Day Surgery Unit Vital Signs Most Recent Imported Vital Signs: Most Recent Vital Signs Temp Pulse Resp BP Pulse Ox 36.1 C L 93 H 17 1u02/65 98 04/26/22 03:28 04/26/22 03:28 04/26/22 03:28 04/26/22 03:28 04/26/22 09:00 Most Recent Manually Entered Vital Signs: Adult Blood Pressure: 141/87 Heart Rate: 78 Respirations: 12 Oxygen Saturation (%): 96 Temperature (C): 36.3 C Pain Score (0-10 Scale): 0 Pain Score Most Recent Pain Score: Most Recent Pain Score Pain Level 0 04/26/22 03:28 Assessment Mental Status: Awake (Alert & Oriented to Patient Baseline) Airway and Respiratory Function: Patent airway with normal (patient baseline) respiratory exam Cardiovascular Function: Hemodynamically Stable Hydration Status: Adequately Hydrated Nausea & Vomiting: No Nausea or Vomiting Pain: Pt. Denies Any Pain Peripheral Nerve Block: Patient did not receive a nerve block
[2022-04-26] MEDS: Ketorolac 15 MG/ML VIAL IVP ×2 (14:48→23:31)
--- NOTE | 2022-04-26 15:55 | W.PM.PROGNOT ---
Date of Service Date of service: 04/26/22 Time of Service: 10:00 Assessment and Plan Assessment and plan (1) Right kidney stone: Status: Acute Assessment and plan: no further pain or vomiting overnight. Has been NPO for planned procedure today continue pain management and antiemetics as needed urology following. strain urine, continue flomax (2) COVID-19: Status: Acute Assessment and plan: Had symptomatic covid in early April and now with no respiratory symptoms, likely residual positive PCR. She remains fatigued since. No covid treatment recommended at this time. high cycling time (> 34), no covid precaution, standard precautions only. (3) Discharge planning issues: Status: Acute Assessment and plan: anticipate discharge to home with no services when medically stable. discussed with DR Alfaro Subjective Subjective Patient reports: no new complaints, feels better and afebrile Interval history since last seen: no longer having pain or nausea, awaiting OR procedure planned at noon Exam Const General: cooperative and no acute distress Nutritional Appearance: average body habitus Orientation: alert, awake and oriented x3 HENNH Head: normal to inspection, normocephalic and atraumatic Mouth: oral mucosae normal Cardio Rate: regular rate Rhythm: regular rhythm GI Inspection: normal to inspection Palpation: soft and nontender Skin General skin exam: no rashes or lesions noted Neuro General: patient alert, patient awake, patient oriented x3 and no focal motor deficits Extrem General: normal to inspection and no pedal edema Psych Appearance: grossly normal Mental Status: mental status grossly normal Speech and Movement: speech and movement normal Mood: congruent mood Objective Last Vital Signs Temp 37.4 C 04/26/22 15:29 Pulse 64 04/26/22 15:29 Resp 18 04/26/22 15:29 BP 148/87 H 04/26/22 15:29 Pulse Ox 96 04/26/22 15:29 Laboratory Results - last 24 hr 04/26/22 04/26/22 06:15 06:15 WBC 7.46 RBC 3.55 L Hgb 11.0 L Hct 33.3 L MCV 94 MCH 31.0 MCHC 33.0 RDW 11.8 Plt Count 294 MPV 9.9 Immature Gran % 0.3 Neutrophils % 63.2 Lymphocytes % 25.5 Monocytes % 8.4 Eosinophils % 1.9 Basophils % 0.7 Nucleated RBC % 0.0 Absolute Neutrophils 4.72 Absolute Lymphocytes 1.90 Absolute Monocytes 0.63 Absolute Eosinophils 0.14 Absolute Basophils 0.05 Sodium 144 Potassium 3.7 Chloride 110 H Carbon Dioxide 28.4 Anion Gap 5.6 BUN 10 Creatinine 0.8 Estimated GFR/1.73 m2 >= 60.00 Glucose 103 Calcium 8.2 L
[2022-04-27] MEDS: Tamsulosin 0.4 MG CAPCR PO (07:28)
--- NOTE | 2022-04-27 07:32 | W.PM.PROGNOT ---
Date of Service Date of service: 04/27/22 Time of Service: 07:32 Assessment and Plan Assessment and plan (1) Right distal ureteral calculus: Assessment and plan: She is doing well following her ureteroscopy and stone extraction. She is ready for discharge. She will follow-up in our office early next week for stent removal. She will then follow-up with me in 6 to 8 weeks for her postop renal ultrasound and review of her stone analysis. Subjective Subjective Interval history since last seen: She does have some discomfort when she urinates as would be expected with a stent in place. He has seen some blood in the urine. He is not having severe renal colic type pain. She has no fever or chills. She is able to tolerate oral medications and nutrition. She is not having nausea or vomiting Exam Narrative Exam Narrative: He looks comfortable. She does not appear septic or toxic Her vital signs are documented elsewhere She is awake and alert Objective Last Vital Signs Temp 36.6 C 04/26/22 22:47 Pulse 66 04/26/22 22:47 Resp 17 04/26/22 22:47 BP 126/77 04/26/22 22:47 Pulse Ox 95 04/26/22 22:47
[2022-04-27 07:33] VITALS: BP 138/81; PULSE 69; RESP 16; TEMP 36.4; O2SAT 98
--- NOTE | 2022-04-27 07:35 | DSE_ITS ---
Date of service: 04/27/22 Time of Service: 07:35 DS: Diagnosis Discharge Diagnosis (1) Right distal ureteral calculus: Discharge Plan Disposition Patient Disposition: HOME Condition: Stable Discharge Details Reason For Visit: Kidney Stone Right Admit Date/Time: 04/25/22 11:52 Admit Provider: Annamaria Resendez Attending Provider: Annamaria Resendez Primary Care Provider: Brigida Roque Hospital Course Hospital Course: The patient was admitted from the emergency department on 04/25/2022. She was given IV hydration, analgesics and antiemetics. She was then taken to the operating room on 04/26/2022 where she underwent cystoscopy, retrograde pyelogram, right ureteroscopy with extraction of her distal ureteral stone. We placed a right ureteral stent. She was then monitored overnight. She remained relatively comfortable with no significant flank pain, nausea or vomiting. She did have some discomfort when she voided and has seen some blood in the urine. I reassured her that these findings are common with a ureteral stent being present. She is ready for discharge on postoperative day #1. The patient did have a symptomatic COVID infection earlier in the month. Her PCR test is still positive, but after consultation with my hospitalist colleagues, it was felt that the patient is not contagious and no additional treatment is necessary. Home Meds and New Rx's Prescriptions: No Action ibuprofen 400 mg Tablet 400 mg PO Q6H Discharge Instructions Additional Instructions: Follow-up in office early next week for stent removal (tell my office staff that there is a string on her stent) Follow-up appointment in about 6 to 8 weeks with a renal ultrasound. Activity:: Activity as Tolerated Equipment/Supplies:: No Equipment Needed Diet:: As Tolerated Discharge Orders Discharge Orders: Discharge Order (Routine); Ordered 04/27/22 Ordered By: Luis Manuel Vargas DS: Summary Time Spent with Patient providing and/or coordinating discharge services: Less than 30 minutes Status at Discharge Functional status at discharge: independent ambulation Overall status at discharge: patient is back to baseline Mental Status: mental status grossly normal Speech and Movement: speech and movement normal Mood: congruent mood Affect: normal affect Exam Narrative Exam Narrative: In the morning discharge, the patient looks comfortable. She does not appear septic or toxic Her vital signs are documented elsewhere Her lungs are clear Cardiac exam shows a regular rate and rhythm Her abdomen is soft with no mass She is awake and alert. Psych Mental Status: mental status grossly normal Speech and Movement: speech and movement normal Mood: congruent mood Affect: normal affect DS: Data Vitals/I&O Vitals and I&O: Vital Signs Temperature 36.4 C L 04/27/22 07:33 Temperature Source Tympanic 04/27/22 07:33 Pulse 69 04/27/22 07:33 Pulse Rhythm Regular 04/27/22 05:42 Respiratory Rate 16 04/27/22 07:33 Respiratory Effort 04/27/22 05:42 Respiratory Depth Normal 04/27/22 05:42 Respiratory Pattern Normal 04/27/22 05:42 Blood Pressure 138/81 04/27/22 07:33 Blood Pressure Position Sitting 04/25/22 07:45 Pulse Oximetry 98 04/27/22 07:33 Oxygen Delivery Method Room Air 04/27/22 07:33 Oxygen Flow Rate 0 04/27/22 07:33 Pain Level 0 04/27/22 07:33 Comment 04/26/22 14:08 Intake & Output 04/26/22 04/26/22 04/27/22 11:59 23:59 11:59 Intake Total 1022.5 / 3256.0 2233.5 / 3256.0 Output Total 800 / 1500 700 / 1500 950 / 950 Balance 222.5 / 1756.0 1533.5 / 1756.0 -950 / -950 Weight 79.379 kg Intake: IV 1022.5 / 3156.0 2133.5 / 3156.0 Oral 100 / 100 Output: Urine 800 / 1500 700 / 1500 950 / 950 Other: Urine Color Yellow [place] Urine Appearance Clear Hematuria Clear Hematuria Urine Odor Normal None None Strain Urine Result Negative-No Stones/Gravel Negative-No Stones/Gravel Comment reported by pt - voided at this time. pt returned to bed after coiding/flushing and called rn for assist and wash up, small incontinence reported, assisted pt to wash up. iv fluids dc'd per new order pt reports R flank pain during voiding Voiding Methods Toilet Toilet Toilet Data Completed and Pending Labs on day of discharge: Labs from last 24 hours 04/26/22 13:30 Stone Source Pending Stone Comment Pending Kidney Stone Analysis Pending [facility] All Active Problems (Updated 04/27/22 @ 07:35 by Luis Manuel Vargas MD) Discharge planning issues (Acute) COVID-19 (Acute) Right kidney stone (Acute) Medical History (Updated 04/27/22 @ 07:35 by Luis Manuel Vargas MD) Impacted cerumen (08/10/13) Right distal ureteral calculus Sensorineural hearing loss, unilateral (08/10/13) Surgical History Colonoscopy - MAC (10/04/17) Family History Mother OA (osteoarthritis) Stroke Father Diabetes CAD (coronary artery disease) Social History Smoking/Tobacco Use Status: Never Smoking risk assessment performed?: Yes Alcohol Intake: current Alcohol Intake frequency: holidays/special occasions only Drug use: Never Substance use type: does not use Do you feel safe at home: Yes Do you feel safe in your relationship?: Yes
--- NOTE | 2022-04-27 07:42 | DSE_ITS ---
DS: Diagnosis Discharge Diagnosis (1) Right distal ureteral calculus: Discharge Plan Disposition Patient Disposition: HOME Condition: Stable Discharge Details Reason For Visit: Kidney Stone Right Admit Date/Time: 04/25/22 11:52 Admit Provider: Annamaria Resendez Attending Provider: Annamaria Resendez Primary Care Provider: Brigida Roque Hospital Course Hospital Course: The patient was admitted from the emergency department on 04/25/2022. She was given IV hydration, analgesics and antiemetics. She was then taken to the operating room on 04/26/2022 where she underwent cystoscopy, retrograde pyelogram, right ureteroscopy with extraction of her distal ureteral stone. We placed a right ureteral stent. She was then monitored overnight. She remained relatively comfortable with no significant flank pain, nausea or vomiting. She did have some discomfort when she voided and has seen some blood in the urine. I reassured her that these findings are common with a ureteral stent being present. She is ready for discharge on postoperative day #1. The patient did have a symptomatic COVID infection earlier in the month. Her PCR test is still positive, but after consultation with my hospitalist colleagues, it was felt that the patient is not contagious and no additional treatment is necessary. Home Meds and New Rx's Prescriptions: New tramadol 50 mg tablet 50 mg PO Q6H PRNQty: 10 0RF No Action ibuprofen 400 mg Tablet 400 mg PO Q6H Discharge Instructions Instructions: Kidney Stones (DC), Urethral Stent Placement (DC) Additional Instructions: Follow-up in office early next week for stent removal (tell my office staff that there is a string on her stent) Follow-up appointment in about 6 to 8 weeks with a renal ultrasound. Stand Alone Forms: Nursing Discharge Form Referrals: Luis Manuel Vargas MD [ [facility] STAFF PHYSICIAN] - (The nurse from DR Gomez office will call you today to make an appointment ) Activity:: Activity as Tolerated Equipment/Supplies:: No Equipment Needed Diet:: As Tolerated Discharge Orders Discharge Orders: Discharge Order (Routine); Ordered 04/27/22 Ordered By: Luis Manuel Vargas Discharge Data Discharge Date/Time-TO BE ENTERED AT DEPARTURE: 04/27/22 10:04 DS: Summary Time Spent with Patient providing and/or coordinating discharge services: Less than 30 minutes Status at Discharge Functional status at discharge: independent ambulation Overall status at discharge: patient is back to baseline Mental Status: mental status grossly normal Speech and Movement: speech and movement normal Mood: congruent mood Affect: normal affect Exam Psych Mental Status: mental status grossly normal Speech and Movement: speech and movement normal Mood: congruent mood Affect: normal affect DS: Data Vitals/I&O Vitals and I&O: Vital Signs Temperature 36.4 C L 04/27/22 07:33 Temperature Source Tympanic 04/27/22 07:33 Pulse 69 04/27/22 07:33 Pulse Rhythm Regular 04/27/22 05:42 Respiratory Rate 16 04/27/22 07:33 Respiratory Effort 04/27/22 05:42 Respiratory Depth Normal 04/27/22 05:42 Respiratory Pattern Normal 04/27/22 05:42 Blood Pressure 138/81 04/27/22 07:33 Blood Pressure Position Sitting 04/25/22 07:45 Pulse Oximetry 98 04/27/22 07:33 Oxygen Delivery Method Room Air 04/27/22 07:33 Oxygen Flow Rate 0 04/27/22 07:33 Pain Level 0 04/27/22 07:33 Comment 04/26/22 14:08 Intake & Output 04/26/22 04/26/22 04/27/22 11:59 23:59 11:59 Intake Total 1022.5 / 3256.0 2233.5 / 3256.0 Output Total 800 / 1500 700 / 1500 950 / 950 Balance 222.5 / 1756.0 1533.5 / 1756.0 -950 / -950 Weight 79.379 kg Intake: IV 1022.5 / 3156.0 2133.5 / 3156.0 Oral 100 / 100 Output: Urine 800 / 1500 700 / 1500 950 / 950 Other: Urine Color Yellow [place] Urine Appearance Clear Hematuria Clear Hematuria Urine Odor Normal None None Strain Urine Result Negative-No Stones/Gravel Negative-No Stones/Gravel Comment reported by pt - voided at this time. pt returned to bed after coiding/flushing and called rn for assist and wash up, small incontinence reported, assisted pt to wash up. iv fluids dc'd per new order pt reports R flank pain during voiding Voiding Methods Toilet Toilet Toilet Data Completed and Pending Labs on day of discharge: Labs from last 24 hours 04/26/22 13:30 Stone Source Pending Stone Comment Pending Kidney Stone Analysis Pending [facility] All Active Problems (Updated 04/27/22 @ 07:35 by Luis Manuel Vargas MD) Discharge planning issues (Acute) COVID-19 (Acute) Right kidney stone (Acute) Medical History (Updated 04/27/22 @ 07:35 by Luis Manuel Vargas MD) Impacted cerumen (08/10/13) Right distal ureteral calculus Sensorineural hearing loss, unilateral (08/10/13) Surgical History Colonoscopy - MAC (10/04/17) Family History Mother OA (osteoarthritis) Stroke Father Diabetes CAD (coronary artery disease) Social History Smoking/Tobacco Use Status: Never Smoking risk assessment performed?: Yes Alcohol Intake: current Alcohol Intake frequency: holidays/special occasions only Drug use: Never Substance use type: does not use Do you feel safe at home: Yes Do you feel safe in your relationship?: Yes
--- NOTE | 2022-04-27 10:27 | PDOC.CMDIS ---
- If Service Date Differs Date of service: 04/27/22 Time of Service: 10:27 LACE Index Scoring Tool - Questions: Length of Stay (in days): 2 Acuity (Admit via E.D.?): Yes E.D. Visits: 1 - Answers: Total Score: 6 Risk of Readmission: Low Risk Care Management Discharge Reason for Hospitalization: right kidney stone Discharge Plan: [place] will return home with no new services. She will folow up with Urology and her PCP and transport with family. Patient/Family Education Needs: Review of discharge instructions, limitations, activity, follow up plan, discuss Ask Me Three
[2022-05-01 23:31] LABS: Source: Right Ureter
== END 2022-04-27 10:04 | disposition home or self-care (01) ==
LOC: ER 12:13 → MS 12:45
PROVIDERS: Nurse Practitioner Acute Care; Urology; Admitting Provider Internal Medicine; Emergency Provider Student in an Organized Health Care Education/Training Program; PCP Family Medicine; Visit Provider Internal Medicine
PROC: 0T9680Z Drainage of Right Ureter with Drainage Device, Via Natural or Artificial Opening Endoscopic (ICD-10-PCS; CPT 52352; principal; 2022-04-26 11:45)
DX: N13.2 Hydronephrosis with renal and ureteral calculous obstruction (principal); U07.1 COVID-19; R11.2 Nausea with vomiting, unspecified; R31.9 Hematuria, unspecified
CPT/HCPCS: 52352; 52332; 36415; 80048; 80053; 83690; 87635; 96361; 96374; 96375; 96376; 99285; 74176; 74420; 81003; 81015; 82365; 85025; 99219; 99225; G0378; J0690; J1170; J1885; J2250; J2405; J2765; J3490

== ENCOUNTER → 2023-10-04 01:07 | Outpatient (CLI) | payer BC, SELFPAY ==
--- NOTE | 2023-10-04 | DI.MRI_ITS ---
Exam(s) MR LOWER JOINT RT WO EXAM: MR LOWER JOINT RT WO CLINICAL HISTORY: RT HIP PAIN, M25.551, SPRAIN, S73.101A, EVAL RT PROXIMAL HAMSTRING TECHNIQUE: Multiplanar multisequence MRI of right hip was performed COMPARISON: DOC,DX XR PELVIS AND HIP LAT RT from 06/06/2023 FINDINGS: Bones: There is no evidence of a fracture or avascular necrosis. No significant joint effusion or l abral injury is present. There is a 1.6 cm cyst in the left femoral head. Marrow signal is otherwise within normal limits. The SI joints and symphysis pubis are well maintained. Musculotendinous structures: There is marked attenuation/atrophy of the right hamstring tendon and m arked atrophy of the right semimembranosus and semitendinosus muscles. There is a very thin hypointe nse right hamstring tendon visualized. There is hyperintense signal seen within the left hamstring t endon at its insertion site suggesting a partial tear. Diverticulosis of the colon is seen. The uri nary bladder is incompletely distended. This limits evaluation. IMPRESSION: 1. Marked atrophy/attenuation in size of the right hamstring tendon. This may be due to chronic tear . 2. Marked atrophy of the semimembranosus and semitendinosus muscles. An MRI of the thigh should be c onsidered for further characterization of the muscle and tendon. 3. Hyperintense signal seen within the left hamstring tendon at its insertion site suggesting a parti al tear. DATA REPOSITORY:
== END ==
PROVIDERS: PCP Family Medicine; Visit Provider Physician Assistant Surgical
DX: S73.101A Unspecified sprain of right hip, initial encounter (principal); M25.551 Pain in right hip; R93.6 Abnormal findings on diagnostic imaging of limbs
CPT/HCPCS: 73721

== ENCOUNTER 2024-09-14 01:18 | Emergency (ER) | payer BC, SELFPAY ==
[2024-09-14] VITALS (9 sets, daily range): BP systolic 122–177; BP diastolic 78–90; PULSE 71–89; RESP 17–20; TEMP 36.5; O2SAT 96–98
--- NOTE | 2024-09-14 01:15 | RT.EKG_ITS ---
APPROVED REPORT Exam: Resting ECG Reason for Exam: trouble breathing Patient Location: E HR:86 bpm ECG Measurements Heart Rate 86 AXIS TX 188 P 44 QRSd 100 QRS 13 QT 358 T 42 QTc 428 Conclusion Sinus rhythm...normal P axis, V-rate 60- 99 Probable left atrial enlargement...P >50mS, <-0.10mV V1 I have reviewed and interpreted ECG and agree with software generated interpretation.
--- NOTE | 2024-09-14 01:30 | DI.RAD_ITS ---
Exam(s) XR PORTABLE CHEST AP EXAM: XR PORTABLE CHEST AP CLINICAL HISTORY: cough TECHNIQUE: 2D digital imaging was performed. COMPARISON: CR CHEST 2 VIEWS PA,LAT from 03/07/2016 FINDINGS: LUNGS: Clear. No pleural abnormality seen. HEART: Normal size. AORTA: Normal diameter. BONES: Unremarkable for age. Soft tissues: Unremarkable. IMPRESSION: No acute findings. DATA REPOSITORY: RADIATION DOSE DELIVERED:
[2024-09-14 02:12] LABS: BE (Venous) 2 mmol/L (-2-3); HCO3 (Venous) 27 mmol/L (23-28); O2 Sat (Venous) 75 %; TCO2 (Venous) 25 mmol/L (24-29); pCO2 (Venous) 46 mmHg (41-51); pH (Venous) 7.38 (7.31-7.41); pO2 (Venous) 41 mmHg
[2024-09-14 02:13] LABS: Abs Immature Grans 0.01 10^3/uL (0.0-0.06); Absolute Basophil Count 0.07 10^3/uL (0.0-0.2); Absolute Eosinophil Count 0.37 10^3/uL (0.0-0.7); Absolute Lymphocyte Count 2.14 10^3/uL (1.2-3.4); Absolute Monocyte Count 0.71 10^3/uL (0.1-0.8); Absolute Neutrophil Count 4.34 10^3/uL (1.2-6.7); Basophils % 0.9 %; Eosinophils % 4.8 %; HCT 38.4 % (36.0-46.0); HGB 12.9 g/dL (11.2-15.7); Immature Grans % 0.1 %; MCH 31.5 pg (27.0-33.0); MCHC 33.6 % (32.0-36.0); MCV 94 fL (80-95); MPV 9.1 fL (8.0-11.0); Monocytes % 9.3 %; Neutrophils % 56.9 %; Platelet Count 358 10^3/uL (130-400); RBC 4.09 10^6/uL (3.93-5.22); RDW 11.4 % (11.7-14.6); RDW-SD 39.1 fL; WBC 7.64 10^3/uL (4.4-10.8)
--- NOTE | 2024-09-14 02:15 | DI.VRAD_ITS ---
PROCEDURE INFORMATION: Exam: XR Chest Exam date and time: 09/14/2024 1:56 AM Age: 64 years old Clinical indication: Cough TECHNIQUE: Imaging protocol: Radiologic exam of the chest. Views: 1 view. COMPARISON: CT RENAL COLIC WO 04/25/2022 9:04 AM FINDINGS: Lungs: No pulmonary consolidation is seen. Pleural spaces: No pleural effusion or pneumothorax is demonstrated. Heart/Mediastinum: The heart appears normal in size. Bones/joints: The visualized bony structures appear grossly intact. IMPRESSION: No active disease is seen in the chest. Dictated and Authenticated by: Castro Albert MD. Ordering:CHANELLE Grossman MD
[2024-09-14 02:38] LABS: ALT 24 U/L (14-59); AST 17 U/L (15-37); Albumin 3.5 g/dL (3.4-5.0); Alkaline Phosphatase 112 U/L (46-116); Anion Gap 6.8 mmol/L (3-11); BUN 19 mg/dL (7-18); Bilirubin, Total 0.23 mg/dL (0.2-1.0); CO2 30.2 mmol/L (21.0-32.0); CREATININE 0.7 mg/dL (0.55-1.02); Calcium 9.5 mg/dL (8.5-10.1); Chloride 106 mmol/L (98-107); Estimated GFR 96.52 (mL/min/1.73m2); Glucose 109 mg/dL (74-106); NT-proBNP 65 pg/mL (<300); Potassium 3.8 mmol/L (3.5-5.1); Sodium 143 mmol/L (136-145); Total Protein 7.4 g/dL (6.4-8.2); Troponin I 6 ng/L (<or=51)
[2024-09-14 02:55] LABS: COVID-19 PCR Negative (Negative); Influenza A PCR Negative (Negative); Influenza B PCR Negative (Negative); RSV PCR Negative (Negative); Source Nasopharynx
[2024-09-14 02:58] LABS: Procalcitonin < 0.10 ng/mL
--- NOTE | 2024-09-14 03:13 | W.ED.GENAD ---
Discharge Plan Disposition Patient Disposition: Home Condition: Good Discharge Details Clinical Impression: Cough Primary Care Provider: Brigida Roque ED Provider: Chauncey Villafana Home Meds and New Rx's Prescriptions: New loratadine 10 mg tablet 10 mg PO DAILY Qty: 14 0RF benzonatate 100 mg capsule 100 mg PO TID Qty: 30 0RF Discharge Instructions Instructions: Cough, Adult ED Additional Instructions: At this time workup does not show any evidence of heart attack, pneumonia, significantly low oxygen levels, or significant infection. Please take the Symbicort inhaler, 2 puffs every 12 hours. Please take the 10 mg of loratadine daily. This has been sent to your pharmacy on file. Please continue to use the hot steam in the morning at night to help clear out your sinuses. If you notice any worsening of your symptoms, or any new symptoms such as vomiting, diarrhea, fever, chills, shortness of breath, chest pain, numbness, weakness, or fainting , please return immediately to the emergency department for reevaluation. Please follow up with your primary care provider as soon as possible for reassessment and reevaluation. As always, it was a pleasure participating in your medical care today. Referrals: Brigida Roque [Primary Care Provider] - Discharge Data Discharge Date/Time-TO BE ENTERED AT DEPARTURE: 09/14/24 04:55 HPI General Date/Time Provider Initiated Documentation: 09/14/24 01:25. HPI Narrative: 64-year-old female with no significant past medical history presents for cough. She states that for the last few weeks she has had a mild cough, some nasal discharge. Initially she had some sinus pressure however this is resolved. She states that she has episodes of coughing fits that occur every night when she lies down flat and last for few minutes. This evening her coughing fit was so bad that she felt like she could not get any air, and felt like she almost had to pass out. She denies any pleuritic chest pain. She denies any hemoptysis. No fever or chills. She does not smoke. No she has been getting out green mucus like discharge from her nose. She denies any other complaints at this time. Related Data Home Medications ?Medication ?Instructions ?Recorded ?Confirmed benzonatate 100 mg capsule 100 mg PO TID #30 caps 09/14/24 loratadine 10 mg tablet 10 mg PO DAILY #14 tabs 09/14/24 Previous Rx's ?Medication ?Instructions ?Recorded benzonatate 100 mg capsule 100 mg PO TID #30 caps 09/14/24 loratadine 10 mg tablet 10 mg PO DAILY #14 tabs 09/14/24 Allergies Allergy/AdvReac Type Severity Reaction Status Date / Time No Known Allergies Allergy Unverified 09/14/24 01:27 General Stated Complaint: RespSymp LAINE: 3 Exam Narrative Exam Narrative: 1.Const: Well-nourished, Well-developed, appearing stated age 2.Eyes: PERRL, no conjunctival injection, and symmetrical lids. 3.ENT: Atraumatic external nose and ears. Moist MM. Neck: Symmetric, trachea midline, No thyromegaly. 4.CVS: +S1/S2, Peripheral pulses 2+ and equal in all extremities. Brisk capillary refill in all extremities. 5.RESP: Unlabored respiratory effort. Clear to auscultation bilaterally. No wheezes rales or rhonchi 6.GI: Soft, Nontender/Nondistended, No hepatosplenomegaly. No guarding or rebound. 7.MSK: Normocephalic/Atraumatic, Extremities w/o deformity or ttp No cyanosis or clubbing, Normal movement of all extremities 8.Skin: Warm, Dry. No rashes or lesions. 9.Neuro: flag signalman II-XII grossly intact. Sensation grossly intact, no focal neurologic deficits. 10.Psych: (AAO) x3. Appropriate mood and affect Course Vital Signs Vital signs: Vital Signs Temperature 36.5 C 09/14/24 01:22 Pulse 89 09/14/24 01:22 Respiratory Rate 20 09/14/24 01:22 Blood Pressure 177/90 H 09/14/24 01:22 Pulse Oximetry 97 09/14/24 01:22 Temperature 36.5 C 09/14/24 01:22 Temperature Source Temporal Artery Scan 09/14/24 01:22 Pulse 71 09/14/24 03:01 Respiratory Rate 17 09/14/24 02:26 Respiratory Effort Normal 09/14/24 01:25 Blood Pressure 138/78 09/14/24 03:01 Blood Pressure Mean 95 09/14/24 03:01 Pulse Oximetry 97 09/14/24 03:01 Oxygen Delivery Method Room Air 09/14/24 02:26 Oxygen Flow Rate 0 09/14/24 02:26 Lab/Test Results Lab/Test Results: Laboratory Tests Range/Units 09/14/24 02:06 WBC (4.4-10.8) 10^3/uL 7.64 RBC (3.93-5.22) 10^6/uL 4.09 Hgb (11.2-15.7) g/dL 12.9 Hct (36.0-46.0) % 38.4 MCV (80-95) fL 94 MCH (27.0-33.0) pg 31.5 MCHC (32.0-36.0) % 33.6 RDW (11.7-14.6) % 11.4 L Plt Count (130-400) 10^3/uL 358 MPV (8.0-11.0) fL 9.1 Immature Gran % % 0.1 Neutrophils % % 56.9 Lymphocytes % % 28.0 Monocytes % % 9.3 Eosinophils % % 4.8 Basophils % % 0.9 Nucleated RBC % (0.0-0.3) % 0.0 Absolute Neutrophils (1.2-6.7) 10^3/uL 4.34 Absolute Lymphocytes (1.2-3.4) 10^3/uL 2.14 Absolute Monocytes (0.1-0.8) 10^3/uL 0.71 Absolute Eosinophils (0.0-0.7) 10^3/uL 0.37 Absolute Basophils (0.0-0.2) 10^3/uL 0.07 VBG pH (7.31-7.41) 7.38 VBG pCO2 (41-51) mmHg 46 VBG pO2 mmHg 41 VBG HCO3 (23-28) mmol/L 27 VBG Total CO2 (24-29) mmol/L 25 VBG O2 Saturation % 75 VBG Base Excess (-2-3) mmol/L 2 Sodium (136-145) mmol/L 143 Potassium (3.5-5.1) mmol/L 3.8 Chloride (98-107) mmol/L 106 Carbon Dioxide (21.0-32.0) mmol/L 30.2 Anion Gap (3-11) mmol/L 6.8 BUN (7-18) mg/dL 19 H Creatinine (0.55-1.02) mg/dL 0.7 Est GFR (CKD-EPI 2020) (mL/min/1.73m2) 96.52 Glucose (74-106) mg/dL 109 H Calcium (8.5-10.1) mg/dL 9.5 Total Bilirubin (0.2-1.0) mg/dL 0.23 AST (15-37) U/L 17 ALT (14-59) U/L 24 Alkaline Phosphatase (46-116) U/L 112 Troponin I (<or=51) ng/L 6 NT-Pro-B Natriuret Pep (<300) pg/mL 65 Total Protein (6.4-8.2) g/dL 7.4 Albumin (3.4-5.0) g/dL 3.5 Procalcitonin ng/mL < 0.10 COVID-19 Source Nasopharynx SARS-CoV-2 (PCR) (Negative) Negative Influenza Type A (PCR) (Negative) Negative Influenza Type B (PCR) (Negative) Negative RSV (PCR) (Negative) Negative Medical Decision Making 64-year-old female with no significant past medical history presents for cough. She states that for the last few weeks she has had a mild cough, some nasal discharge. Initially she had some sinus pressure however this is resolved. She states that she has episodes of coughing fits that occur every night when she lies down flat and last for few minutes. This evening her coughing fit was so bad that she felt like she could not get any air, and felt like she almost had to pass out. She denies any pleuritic chest pain. She denies any hemoptysis. No fever or chills. She does not smoke. No she has been getting out green mucus like discharge from her nose. She denies any other complaints at this time. Exam demonstrates well-appearing female, lungs are clear, oxygenation excellent, mildly hypertensive. No sinus tenderness to suggest acute sinusitis. Differential includes pneumonia, cardiac etiology, COVID flu RSV, less likely pneumothorax. Will evaluate for concerning etiologies, monitor closely and reassess. 4 AM Patient had no coughing fits here. Oxygenation remained stable. Laboratory workup shows no white count bandemia or left shift. VBG shows no evidence of hypoxemia, hypercarbia or other significant abnormalities. Electrolytes normal, renal function normal, proBNP normal suggesting no signs of heart strain. Troponins are normal. Procalcitonin negative suggesting no evidence of infection in conjunction with her other labs. COVID flu and RSV negative. Chest x-ray negative for pneumonia. I suspect that there is a component of potential postnasal drip that may be exacerbating her symptomatology when she lies down. Will recommend K[place]ee pot in the morning in the evening for mucus extraction from the nose. Will recommend loratadine 10 mg daily. Will give Symbicort inhaler with steroid component to help with suspected mild hyperreactivity of lungs after this prolonged coughing. Will give Tessalon Perles for home use. Symptoms appear clinically inconsistent with pulmonary embolism. No calf pain or pleuritic chest pain. No recent long trips surgeries or procedures. Discussed red flags for which to return. I have extensively reviewed the treatment plan and discharge instructions with the patient. I have addressed all patient concerns at this time. The patient was made aware of what symptoms to monitor for that would warrant a return to the emergency department. Discussed the plan with the patient, they demonstrate verbal understanding and agreement with our assessment and plan at this time. The documentation in this chart was dictated using [employer] dictation software. Please excuse any dictation errors. FINDINGS: Lungs: No pulmonary consolidation is seen. Pleural spaces: No pleural effusion or pneumothorax is demonstrated. Heart/Mediastinum: The heart appears normal in size. Bones/joints: The visualized bony structures appear grossly intact. IMPRESSION: No active disease is seen in the chest. Thank you for allowing us to participate in the care of your patient. Dictated and Authenticated by: Castro Albert MD 09/14/2024 2:14 AM Eastern Time ([place] & [place]) Quality:SDOH Health Related Social Needs: No Data to Display PFSH All Active Problems (Updated 09/14/24 @ 04:04 by Chauncey Villafana DO) Cough (Acute) Medical History (Updated 09/14/24 @ 04:04 by Chauncey Villafana DO) Sensorineural hearing loss, unilateral (08/10/13) Impacted cerumen (08/10/13) Right distal ureteral calculus COVID-19 Right kidney stone Surgical History Colonoscopy - MAC (10/04/17) Family History Mother OA (osteoarthritis) Stroke Father Diabetes CAD (coronary artery disease) Social History Smoking/Tobacco Use Status: Never Smoking risk assessment performed?: Yes Alcohol Intake: current Alcohol Intake frequency: holidays/special occasions only Drug use: Never Substance use type: does not use Do you feel safe at home: Yes Do you feel safe in your relationship?: Yes
[2024-09-14 03:40] LABS: Troponin I 5 ng/L (<or=51)
[2024-09-14] MEDS: Budesonide/Formoterol 160/4.5 6 GM 60 PUFF INH IH (04:12)
[2024-09-14] MEDS: Loratidine 10 MG TAB PO (04:12)
== END 2024-09-14 04:55 | disposition home or self-care (01) ==
LOC: ER 04:14
PROVIDERS: Emergency Provider Student in an Organized Health Care Education/Training Program; PCP Family Medicine
DX: R05.1 Acute cough (principal); I10 Essential (primary) hypertension
CPT/HCPCS: 36415; 80053; 82805; 84145; 87637; 93005; 99284; 71045; 83880; 84484; 85025; 93010

== ENCOUNTER 2024-11-04 17:54 | Outpatient (REF) | payer BC, SELFPAY ==
[2024-11-06 10:38] LABS: Lyme Ab w Rflx to Lyme Confirm Negative (Negative)
[2024-11-07 23:49] LABS: Anaplasma phagocytophilum Negative (Negative); B. miyamotoi PCR Negative (Negative); Babesia divergens/MO-1 Negative (Negative); Babesia duncani Negative (Negative); Babesia microti Negative (Negative); Ehrlichia chaffeensis Negative (Negative); Ehrlichia ewingii/canis Negative (Negative); Ehrlichia muris eauclairensis Negative (Negative)
== END 2024-11-04 17:55 | disposition home or self-care (01) ==
LOC: NCHCN 17:54
PROVIDERS: PCP Family Medicine; Visit Provider Family Medicine
DX: M25.59 Pain in other specified joint (principal)
CPT/HCPCS: 87798; 86618